=== PATIENT | male | born 1955 | race Caucasian/White ===

== ENCOUNTER → 2021-06-12 | Outpatient (CLI) | payer MEDICARE, OTHER ==
[~2021-06-12] MED LIST: BACTRIM DS 8001 TAB PO; CATAPRES 0.1MG0.1 MG PO; CEPHALEXIN250 M1 PO; CEPHALEXIN500 M1 PO; CLEOCIN HC150 MG/CAP PO; NO HOME MEDICATIONS; NORCO 325 MG-51 TAB PO; NORVASC 5MG5 MG/TAB PO
== END ==
LOC: COL.RAD 08:50
DX: Z13.6 Encounter for screening for cardiovascular disorders (principal); I77.811 Abdominal aortic ectasia